=== PATIENT | female | born 2000 | race Two or more races ===

== ENCOUNTER 2023-03-10 14:31 | Emergency (ER) | payer MEDICAID, OTHER ==
[~2023-03-10] VITALS: Ht 162.6 cm; Wt 59.0 kg
[2023-03-10] MEDS ORDERED: FAMOTIDINE (10MG/ML) 2ML VL IV ONE (16:30)
[2023-03-10] MEDS ORDERED: SODIUM CHLORIDE 0.9% 1,000 ML IV ONE (16:30)
[2023-03-10] MEDS ORDERED: ONDANSETRON HCL 4 MG/2 ML VIAL IV ONE (16:30)
[2023-03-10] MEDS ORDERED: MAALOX PLUS or MAALOX 30 ML PO ONE (16:30)
[2023-03-10 17:03] LABS: Urine Bacteria NONE SEEN /hpf (None Seen); Urine Blood 3+ /uL (Negative); Urine Clarity Clear (Clear); Urine Color Yellow (Yellow); Urine Mucus FEW (None Seen); Urine Protein, UAD 1+ (Negative); Urine Specific Gravity 1.041 (1.001-1.035); Urine Urobilinogen Normal (Negative); Urine WBC 11 /hpf (0 - 5)
[2023-03-10 18:28] LABS: Basophils # (auto) 0 10 ^3/uL (0-0.2); Basophils % (auto) 0.3 % (0.0-2.0); Eosinophils # (auto) 0 10 ^3/uL (0-0.8); Eosinophils % (auto) 0.2 % (0.0-7.0); Hemoglobin 12.7 g/dL (12.2-16.2); Lymphocytes # (auto) 0.8 10 ^3/uL (0.4-5.4); Lymphocytes % (auto) 6.7 % (10.0-50.0); Mean Corpuscular Hemoglobin 28.6 pg (28.0-32.0); Mean Corpuscular Hgb Conc. 33.4 g/dL (32.0-36.0); Mean Corpuscular Volume 85.8 fL (80.0-100.0); Monocytes # (auto) 0.7 10 ^3/uL (0-1.3); Monocytes % (auto) 5.9 % (0.0-12.0); Neutrophils # (auto) 10.6 10 ^3/uL (1.6-8.6); Neutrophils % (auto) 86.9 % (37.0-80.0); Red Blood Cells 4.43 10^6/uL (4.0-5.20); Red Cell Distribution Width 13.4 % (11.8-14.3); White Blood Cell 12.2 10^3/uL (4.4-10.8)
[2023-03-10 18:39] LABS: Albumin 4.4 g/dL (3.2-4.8); Alkaline Phosphatase 40 U/L (46-116); Anion Gap 5.7 (5-15); Aspartate Aminotransferase 9 U/L (13-40); BUN/Creatinine Ratio 9.5 (10.0-20.0); Blood Urea Nitrogen 7 mg/dL (9-23); Calcium 9.1 mg/dL (8.7-10.4); Carbon Dioxide 19.3 mmol/L (20-30); Chloride 110 mmol/L (98-107); Glucose 90 mg/dL (74-106); Lipase 43 U/L (12-53); Potassium 3.7 mmol/L (3.5-5.1); Sodium 135 mmol/L (136-145)
[2023-03-10 18:40] LABS: Alanine Aminotransferase 9 U/L (7-40); Bilirubin, Total 0.7 mg/dL (0.2-1.0); Total Protein 7.2 g/dL (5.7-8.2)
[2023-03-10] MEDS ORDERED: SUCR1TAB22 OR (19:25)
[2023-03-10] MEDS ORDERED: CEPH500C PO (19:25)
[2023-03-10] MEDS ORDERED: ZOFR4T PO (19:25)
[2023-03-10] MEDS ORDERED: FAMO20TA10 PO (19:25)
[2023-03-10] MEDS ORDERED: MORPHINE SULFATE 4 MG/ML SYR/VIAL IV ONE (19:30)
[2023-03-10] MEDS ORDERED: HYDROcodone-ACET 5/325MG TAB PO ONE (21:45)
[2023-03-10 21:57] VITALS: BP 100/61; PULSE 62; RESP 18; TEMP 97.8; O2SAT 98
== END 2023-03-10 21:58 | disposition home or self-care (01) ==
LOC: EDBD 14:31 → ER 14:31
DX: K29.70 Gastritis, unspecified, without bleeding (principal); I88.0 Nonspecific mesenteric lymphadenitis; N39.0 Urinary tract infection, site not specified
CPT/HCPCS: 36415; 74176; 80053; 81001; 81025; 83690; 85025; 96361; 96374; 96375; 99285; J2405; J3490; J7030